=== PATIENT | female | born 1960 | race Caucasian/White ===

== ENCOUNTER 2022-02-16 08:53 | Outpatient (CLI) | payer BC | END 2022-02-16 08:54 | disposition home or self-care (01) | LOC: TBSIIMAG 08:53 | PROVIDERS: ATTEND Neurological Surgery | DX: M48.062 Spinal stenosis, lumbar region with neurogenic claudication (principal); M47.816 Spondylosis without myelopathy or radiculopathy, lumbar region; M47.817 Spondylosis without myelopathy or radiculopathy, lumbosacral region; Z98.890 Other specified postprocedural states | CPT/HCPCS: 72100 ==

== ENCOUNTER 2022-04-20 06:43 | Outpatient (CLI) | payer BC ==
[2022-04-18 14:17] VITALS: BMI 26.8
[~2022-04-20 06:43] MED LIST: FLU VACC QS2022-23(6MOS UP)/PF 60 MCG/0.5 ML SYRINGE IM ONE
[2022-04-20 07:53] VITALS: BP 134/65; TEMP 97.9
[2022-04-20] MEDS ORDERED: Iopamidol-M 200 41% 10 ML VIAL FS ONE (12:42)
== END 2022-04-20 08:50 | disposition home or self-care (01) ==
LOC: RAD 06:43
PROVIDERS: ATTEND Neurological Surgery
DX: M54.16 Radiculopathy, lumbar region (principal); M48.061 Spinal stenosis, lumbar region without neurogenic claudication; M48.07 Spinal stenosis, lumbosacral region; Z98.890 Other specified postprocedural states
CPT/HCPCS: 62304; 72132; Q9966

== ENCOUNTER 2024-07-27 10:18 | Inpatient (IN) | payer BC, OTHER, SELFPAY ==
[2024-07-27] MEDS ORDERED: Ipratropium/Albuterol 3 ML NEB ONE (10:42)
[2024-07-27] MEDS ORDERED: Magnesium 2 GM/50 ML BAG (IN WATER) ONE (10:42)
[2024-07-27] MEDS ORDERED: methylPREDNISolone Sod Succ/PF 125 MG/2 ML VIAL ONE (10:42)
[2024-07-27 10:53] LABS: #Basophils 0.05 10x3/uL (0.0-0.2); %Basophils 0.4 % (0.0-1.0); %Eosinophils 19.2 % (0.0-10.0); %Lymphocytes 13.6 % (21.0-51.0); %Monocytes 5.7 % (0.0-10.0); %Neutrophils 60.8 % (42.0-75.0); Hematocrit 49.3 % (36.0-47.0); Hemoglobin 15.9 g/dL (12.0-16.0); Mean Corpuscular HGB CONC 32.3 g/dL (32.0-36.0); Mean Corpuscular Hemoglobin 28.1 pg (27.0-31.0); Mean Corpuscular Volume 87.1 fL (78.0-98.0); Mean Platelet Volume 10.7 fL (7.4-10.4); Platelet Count 257 10x3/uL (130-400); RBC Distribution Width 13.4 % (11.5-14.5); Red Blood Cell (RBC) Count 5.66 mill/uL (4.20-5.40)
[2024-07-27 11:18] LABS: Troponin I 0.192 ng/mL (< 0.028)
[2024-07-27 11:20] LABS: ALT (SGPT) 11 U/L (Less than 34); AST (SGOT) 17 U/L (11-34); Albumin 3.4 g/dL (3.1-4.5); Alkaline Phosphatase 103 U/L (40-110); Anion Gap 14 mmol/L (10-20); BUN (Urea Nitrogen) 11 mg/dL (9.8-20.1); Bilirubin, Total 0.5 mg/dL (0.3-1.2); Calc. Creatinine Clearance 0 mL/min (70-130); Calcium 9.6 mg/dL (7.8-10.44); Carbon Dioxide 25 mmol/L (23-31); Chloride 104 mmol/L (98-107); Estimated GFR 99; Globulin 3.7 g/dL (2.4-3.5); Glucose 106 mg/dL (80-115); Lipase 11 U/L (8-78); Magnesium 1.9 mg/dL (1.6-2.6); Potassium 4.1 mmol/L (3.5-5.1); Protein, Total 7.1 g/dL (5.8-8.1); Sodium 139 mmol/L (136-145)
[2024-07-27] MEDS ORDERED: cefTRIAXone (ROCEPHIN) 2 GM VIAL ONE ×2 (11:53→12:06)
[2024-07-27] MEDS ORDERED: Azithromycin 500 MG VIAL ONE (11:53)
[2024-07-27] MEDS ORDERED: Sodium Chloride 0.9% 100 ML ONE ×2 (11:53→12:07)
[2024-07-27] MEDS ORDERED: Aspirin Chewable 81 MG TAB ONE (12:46)
[2024-07-27] MEDS ORDERED: Ipratropium/Albuterol 3 ML NEB NEB PRN (13:19)
[2024-07-27] MEDS ORDERED: Nitroglycerin 0.4 MG TAB (25 Tab Bottle) SL PRN (13:19)
[2024-07-27] MEDS ORDERED: Ondansetron ODT 4 MG TAB PO PRN (13:19)
[2024-07-27] MEDS ORDERED: Acetaminophen 325 MG TAB PO PRN (13:19)
[2024-07-27] MEDS ORDERED: Ondansetron PF 4 MG/2 ML Vial IVP PRN (13:19)
[2024-07-27] MEDS ORDERED: Albuterol 2.5 MG (3 mL) NEB ONE (13:32)
[2024-07-27 16:18] VITALS: BMI 27.1
[2024-07-27 17:42] LABS: Troponin I 0.182 ng/mL (< 0.028)
[2024-07-27] MEDS: Ipratropium/Albuterol 3 ML NEB NEB SCH (19:48)
[2024-07-27] MEDS: busPIRone HCl 5 MG TAB PO SCH (20:16)
[2024-07-27 21:11] LABS: Troponin I 0.151 ng/mL (< 0.028)
[2024-07-28] MEDS: Levothyroxine Sodium 125 MCG TAB PO SCH (05:52)
[2024-07-28 06:19] LABS: #Basophils 0.03 10x3/uL (0.0-0.2); %Basophils 0.2 % (0.0-1.0); %Eosinophils 8.6 % (0.0-10.0); %Lymphocytes 12.1 % (21.0-51.0); %Neutrophils 72.6 % (42.0-75.0); Hematocrit 41.7 % (36.0-47.0); Hemoglobin 13.7 g/dL (12.0-16.0); Mean Corpuscular HGB CONC 32.9 g/dL (32.0-36.0); Mean Corpuscular Hemoglobin 28.1 pg (27.0-31.0); Mean Corpuscular Volume 85.5 fL (78.0-98.0); Mean Platelet Volume 11.3 fL (7.4-10.4); Platelet Count 229 10x3/uL (130-400); RBC Distribution Width 13.5 % (11.5-14.5); Red Blood Cell (RBC) Count 4.88 mill/uL (4.20-5.40)
[2024-07-28 06:34] LABS: Anion Gap 13 mmol/L (10-20); BUN (Urea Nitrogen) 14 mg/dL (9.8-20.1); Calc. Creatinine Clearance 113 mL/min (70-130); Calcium 9.1 mg/dL (7.8-10.44); Carbon Dioxide 26 mmol/L (23-31); Chloride 106 mmol/L (98-107); Estimated GFR 102; Glucose 118 mg/dL (80-115); Sodium 141 mmol/L (136-145)
[2024-07-28] MEDS: Aspirin Chewable 81 MG TAB PO SCH (08:18)
[2024-07-28] MEDS: Rosuvastatin 20 MG TAB PO SCH (08:19)
[2024-07-28] MEDS: cefTRIAXone\\ROCEPHIN 1 GM in Sodium Chloride 0.9% 100 ML IVPB SCH (08:19)
[2024-07-28] MEDS: Montelukast Sodium 10 mg Tablet PO SCH (08:19)
[2024-07-28] MEDS: DULoxetine 60 MG CAP PO SCH (08:19)
[2024-07-28] MEDS: Enoxaparin 40 MG (0.4 mL) SYRINGE SC SCH (08:19)
[2024-07-28] MEDS: methylPREDNISolone Sod Succ/PF 125 MG/2 ML VIAL IVP SCH (08:20)
[2024-07-28] MEDS ORDERED: Benzonatate 100 MG CAP PO PRN (10:11)
[2024-07-28] MEDS: Metoprolol Succinate XL 50 MG ER.TAB PO SCH (10:16)
[2024-07-28] MEDS: guaiFENesin/Codeine 200 mg/20 mg 10 ml Cup PO PRN (12:07)
[2024-07-28] MEDS: methylPREDNISolone Sod Succ 40 MG VIAL IVP SCH (21:54)
[2024-07-28] MEDS: guaiFENesin ER 600 MG TAB PO SCH (21:55)
[2024-07-29 04:57] LABS: #Basophils Less than 0.03 10x3/uL (0.0-0.2); %Basophils 0.2 % (0.0-1.0); %Eosinophils 0.2 % (0.0-10.0); %Lymphocytes 9.8 % (21.0-51.0); %Monocytes 4.8 % (0.0-10.0); %Neutrophils 84.3 % (42.0-75.0); Hematocrit 42.6 % (36.0-47.0); Hemoglobin 13.6 g/dL (12.0-16.0); Mean Corpuscular HGB CONC 31.9 g/dL (32.0-36.0); Mean Corpuscular Volume 87.8 fL (78.0-98.0); Mean Platelet Volume 11.2 fL (7.4-10.4); Platelet Count 247 10x3/uL (130-400); RBC Distribution Width 13.8 % (11.5-14.5); Red Blood Cell (RBC) Count 4.85 mill/uL (4.20-5.40)
[2024-07-29 05:22] LABS: Anion Gap 14 mmol/L (10-20); BUN (Urea Nitrogen) 14 mg/dL (9.8-20.1); Calc. Creatinine Clearance 121 mL/min (70-130); Calcium 9.2 mg/dL (7.8-10.44); Carbon Dioxide 24 mmol/L (23-31); Chloride 108 mmol/L (98-107); Estimated GFR 103; Glucose 132 mg/dL (80-115); Potassium 5.7 mmol/L (3.5-5.1); Sodium 140 mmol/L (136-145)
[2024-07-29] MEDS: FLU (Fluarix Triv) TS24-25(6MOS UP)/PF 45 MCG/0.5 ML Syringe IM ONE (17:54)
[2024-07-30 04:32] LABS: #Basophils Less than 0.03 10x3/uL (0.0-0.2); #Eosinophils Less than 0.03 10x3/uL (0.0-0.7); %Basophils 0.2 % (0.0-1.0); %Eosinophils 0.2 % (0.0-10.0); %Lymphocytes 16.2 % (21.0-51.0); %Neutrophils 79.9 % (42.0-75.0); Hemoglobin 13.8 g/dL (12.0-16.0); Mean Corpuscular HGB CONC 32.1 g/dL (32.0-36.0); Mean Corpuscular Volume 87.4 fL (78.0-98.0); Mean Platelet Volume 10.9 fL (7.4-10.4); Platelet Count 265 10x3/uL (130-400); RBC Distribution Width 13.7 % (11.5-14.5); Red Blood Cell (RBC) Count 4.92 mill/uL (4.20-5.40)
[2024-07-30 05:14] LABS: Anion Gap 16 mmol/L (10-20); BUN (Urea Nitrogen) 17 mg/dL (9.8-20.1); Calc. Creatinine Clearance 103 mL/min (70-130); Calcium 9.3 mg/dL (7.8-10.44); Carbon Dioxide 23 mmol/L (23-31); Chloride 105 mmol/L (98-107); Estimated GFR 99; Glucose 152 mg/dL (80-115); Potassium 4.8 mmol/L (3.5-5.1); Sodium 139 mmol/L (136-145)
[2024-07-30 19:35] VITALS: BP 144/70; TEMP 98.1
== END 2024-07-30 21:00 | disposition home or self-care (01) | DRG 189 ==
LOC: ERS 10:18 → SUATTDRO 10:18 → 2NO 13:08
PROVIDERS: ADMIT Family Medicine; ATTEND Internal Medicine
DX: J96.21 Acute and chronic respiratory failure with hypoxia (principal); I24.89 Other forms of acute ischemic heart disease; J44.1 Chronic obstructive pulmonary disease with (acute) exacerbation; I10 Essential (primary) hypertension; E03.9 Hypothyroidism, unspecified; I25.10 Atherosclerotic heart disease of native coronary artery without angina pectoris; F41.9 Anxiety disorder, unspecified; F32.A Depression, unspecified; Z87.891 Personal history of nicotine dependence; Z91.041 Radiographic dye allergy status; Z88.8 Allergy status to other drugs, medicaments and biological substances; Z79.899 Other long term (current) drug therapy; Z90.710 Acquired absence of both cervix and uterus; Z98.890 Other specified postprocedural states; Z90.89 Acquired absence of other organs
CPT/HCPCS: 36415; 71045; 71250; 78451; 80048; 80053; 83605; 83690; 83735; 83880; 84443; 84484; 85025; 85379; 87040; 87428; 93005; 93970; 94640; 94644; 96365; 96366; 96367; 96375; A9540; J0456; J0696; J1650; J2919; J3475; J7611; J7620